=== PATIENT | female | born 1960 | race Caucasian/White ===

== ENCOUNTER 2023-11-22 13:03 | Emergency (ER) | payer OTHER ==
[2023-11-22 13:12] VITALS: BMI 24.0
[2023-11-22 13:19] VITALS: BP 96/49; PULSE 71; RESP 16; TEMP 97.9
[2023-11-22] MEDS: IBUPROFEN 600 MG TABLET (FP) PO ONE (13:25)
[2023-11-22] MEDS ORDERED: IBUPROFEN 600 MG TABLET (FP) PO ONE (13:38)
== END 2023-11-22 16:10 | disposition home or self-care (01) ==
LOC: FER 13:03
DX: S83.91XA Sprain of unspecified site of right knee, initial encounter (principal); S20.211A Contusion of right front wall of thorax, initial encounter; S20.212A Contusion of left front wall of thorax, initial encounter; W01.0XXA Fall on same level from slipping, tripping and stumbling without subsequent striking against object, initial encounter; Y92.009 Unspecified place in unspecified non-institutional (private) residence as the place of occurrence of the external cause; Y93.01 Activity, walking, marching and hiking
CPT/HCPCS: 71250-TC; 73562-TC-RT-FY; 99284-25